=== PATIENT | female | born 1970 | race Asian ===

== ENCOUNTER 2017-02-16 06:14 | Emergency (ER) | payer BC, OTHER ==
[~2017-02-16] VITALS: Ht 160 cm; Wt 58.2 kg
[~2017-02-16 06:14] MED LIST: DEXL60CA2 PO; IBUP-1542 PO; LORA-186 PO
[2017-02-16 06:28] VITALS: Ht 160 cm; Wt 58.2 kg
[2017-02-16] MEDS ORDERED: KETOROLAC 15 MG INJ IV STA (06:41)
[2017-02-16] MEDS ORDERED: SOD CHLORIDE 0.9% 1,000 ML IV STA (06:41)
[2017-02-16 07:35] LABS: BASOPHILS % 0.6 % (0.0-2.0); EOSINOPHILS # 0.2 10^3/ul (0.0-0.5); EOSINOPHILS % 2.3 % (0.0-7.0); HEMATOCRIT 36.4 % (37.0-47.0); HEMOGLOBIN 12.1 g/dl (12.0-16.0); LYMPHOCYTES # 3.4 10^3/ul (0.8-2.9); LYMPHOCYTES % 47.7 % (15.0-51.0); MEAN CORPUSCULAR HEMOGLOBIN 29.2 pg (29.0-33.0); MEAN CORPUSCULAR HGB CONC 33.2 g/dl (32.0-37.0); MEAN CORPUSCULAR VOLUME 87.7 fl (82.0-101.0); MEAN PLATELET VOLUME 9.6 fl (7.4-10.4); MONOCYTE # 0.4 10^3/ul (0.3-0.9); MONOCYTES % 5.6 % (0.0-11.0); NEUTROPHILS % 43.5 % (39.0-77.0); PLATELET COUNT 304 10^3/UL (140-415); RED BLOOD COUNT 4.15 10^6/ul (4.20-5.40); WHITE BLOOD COUNT 7.1 10^3/ul (4.8-10.8)
--- NOTE | 2017-02-16 07:40 | RADRPT ---
PROCEDURE: CT Abdomen and pelvis without contrast. CLINICAL INDICATION: Flank pain TECHNIQUE: CT scan of the abdomen and pelvis without contrast was performed on a multidetector hig h-resolution CT scan. . Coronal and sagittal reformatted images were obtained from the axial [facility] e images. Standard CT scan of the abdomen pelvis without contrast protocols were performed. The total exam CTDI equals 7.3 mGy and the total exam DLP equals 407.62 mGy-cm. One or more of the following dose reduction techniques were used: - Automated exposure control. - Adjustment of the mA and/or kV according to patient size. Use of iterative reconstruction technique. COMPARISON: None. FINDINGS: The appendix is unremarkable. The stomach, small bowel and large bowel are unremarkable. Negative for intra-abdominal free air, free fluid, abscesses or lymphadenopathy. The kidneys are normal size without calcified renal calculi hydronephrosis or intra renal masses milvia aterally. The ureters and urinary bladder are unremarkable. The uterus is anteverted and anteflexed but otherwise unremarkable. There are no adnexal masses. T he aorta is unremarkable. The liver spleen pancreas adrenal glands and gallbladder are unremarkable. No evidence of biliary d uctal dilation. The abdominal pelvic ac are unremarkable. The lung bases are unremarkable. Minimal degenerative changes lower thoracic and lumbar spine without acute osseous findings are osteoblastic/osteolytic lesions. IMPRESSION: 1. No evidence of calcified urinary calculi or obstructive uropathy. 2. No evidence gastrointestinal disease. Negative appendix. 3. No evidence of intra-abdominal free air, free fluid, abscesses or lymphadenopathy. RPTAT:AAJJ Physician Lena Date Time Electronically viewed and signed by Physician Lena on 02/16/2017 07:39 /
[2017-02-16 07:58] LABS: ALBUMIN/GLOBULIN RATIO 1.17; CREATININE 0.67 mg/dl (0.44-1.00); POTASSIUM 3.6 mmol/L (3.5-5.1); TOTAL PROTEIN 7.4 g/dl (6.1-8.1)
[2017-02-16 08:06] LABS: ADD UMIC YES; UR ASCORBIC ACID NEGATIVE (NEGATIVE); UR BILIRUBIN (Dip) NEGATIVE (NEGATIVE); UR BLOOD (Dip) 1+ mg/dL (NEGATIVE); UR CLARITY CLEAR (CLEAR); UR COLOR YELLOW (YELLOW); UR GLUCOSE (Dip) NEGATIVE (NEGATIVE); UR KETONES (Dip) NEGATIVE (NEGATIVE); UR LEUKOCYTE ESTERASE (Dip) NEGATIVE Leu/ul (NEGATIVE); UR NITRITE (Dip) NEGATIVE (NEGATIVE); UR RBC 7 /HPF (0-5); UR SPECIFIC GRAVITY (Dip) 1.027 (1.003-1.030); UR SQUAMOUS EPITHELIAL CELL FEW /HPF (FEW); UR TOTAL PROTEIN (Dip) NEGATIVE (NEGATIVE); UR UROBILINOGEN (Dip) NEGATIVE (NEGATIVE)
[2017-02-16] MEDS ORDERED: CARI350T PO (08:11)
[2017-02-16] MEDS ORDERED: IBUP-1542 PO (08:11)
[2017-02-16 08:58] VITALS: BP 104/71; PULSE 79; RESP 17; TEMP 98.8
--- NOTE | 2017-02-16 09:18 | ERD ---
ER Documentation Chief Complaint Date/Time DATE: 02/16/17 TIME: 09:14 Chief Complaint flank pain, left side x3days HPI 46-year-old woman presents with about 1-2 weeks of left-sided parathoracic back pain. She has had no dysuria, no fevers or chills, no hematuria, no weight loss , no vomiting or diarrhea. Patient has not been using OTC NSAIDs at home with some relief. ROS All systems reviewed and are negative except as per history of present illness. Medications Home Meds Active Scripts Carisoprodol* (Soma*) 350 Mg Tablet, 350 MG PO TID Y for MUSCLE SPASMS, #12 TAB Prov:DAMIAN ANGELO MD 02/16/17 Ibuprofen* (Ibuprofen*) 600 Mg Tablet, 600 MG PO Q8 for PAIN AND/OR INFLAMMATION , #30 TAB Prov:DAMIAN ANGELO MD 02/16/17 Ibuprofen* (Motrin*) 600 Mg Tab, 600 MG PO Q6H Y for PAIN AND OR ELEVATED TEMP, #30 Prov:LANG SANCHEZ MD 05/16/15 Reported Medications Loratadine* (Claritin*) 10 Mg Tablet, 10 MG PO DAILY, TAB 05/16/15 Dexlansoprazole (Dexilant) 60 Mg Cap., 60 MG PO DAILY, CAP 05/16/15 Allergies Allergies: Coded Allergies: Sulfa (Sulfonamide Antibiotics) (Verified Allergy, Unknown, 05/16/15) PMhx/Soc History of Surgery: Yes (PARTIAL THYROIDECTOMY; LYPHOMA REMOVAL @ BACK ; ) Anesthesia Reaction: No Hx Neurological Disorder: No Hx Respiratory Disorders: No Hx Cardiac Disorders: No Hx Psychiatric Problems: No Hx Miscellaneous Medical Probl: Yes (GERD; SCIATIC NERVE PAIN, MILD SCOLIOSIS) Hx Alcohol Use: Yes (RARELY) Hx Substance Use: No Hx Tobacco Use: No Smoking Status: Former smoker FmHx Family History: No diabetes Physical Exam Vitals Vital Signs Date Time Temp Pulse Resp B/P Pulse Ox O2 Delivery O2 Flow Rate FiO2 02/16/17 08:58 98.8 79 17 104/71 100 Room Air 02/16/17 06:28 98.7 85 14 135/72 100 Physical Exam GENERAL: Well-developed, well-nourished, well-hydrated, in no apparent distress , looks nontoxic in appearance HEENT: Moist mucous membranes, pink conjunctiva, no cervical spine tenderness or step-off deformities, no goiter, no jaundice or icterus, extraocular movements intact without pain. No submandibular induration, and no pharyngeal erythema NEURO: Alert and oriented 3, cranial nerves II through XII intact bilaterally, pupils equal round reactive to light, no focal deficits or facial asymmetry, sensation intact distally Strength 5/5 in upper and lower extremities bilaterally CARDIAC: Regular rate and rhythm, no murmurs rubs or gallops LUNGS: Clear bilaterally no wheezing crackles or stridor ABDOMEN: Soft nontender, no guarding, no rigidity, no rebound, no psoas sign no obturator sign. Normoactive bowel sounds SKIN: Warm and dry to touch, no abrasions, contusions, or hematomas, no lacerations, no ecchymosis, no target lesions, and without ulcers EXTREMITIES: No clubbing cyanosis or edema, calves are bilaterally symmetrical, no Homans sign, no popliteal cord sign. Distal pulses equal and bilateral PSYCH: Normal affect without agitation or irritability Result Diagram: 02/16/17 0650 02/16/17 0650 Results 24 hrs Laboratory Tests Test 02/16/17 06:48 02/16/17 06:50 Urine Color YELLOW Urine Clarity CLEAR Urine pH 5.0 Urine Specific [place] 1.027 Urine Ketones NEGATIVEmg/dL Urine Nitrite NEGATIVEmg/dL Urine Bilirubin NEGATIVEmg/dL Urine Urobilinogen NEGATIVEmg/dL Urine Leukocyte Esterase NEGATIVELeu/ul Urine Microscopic RBC 7/HPF Urine Microscopic WBC 1/HPF Urine Squamous Epithelial Cells FEW/HPF Urine Hemoglobin 1+mg/dL Urine Glucose NEGATIVEmg/dL Urine Total Protein NEGATIVEmg/dl White Blood Count 7.110^3/ul Red Blood Count 4.1510^6/ul Hemoglobin 12.1g/dl Hematocrit 36.4% Mean Corpuscular Volume 87.7fl Mean Corpuscular Hemoglobin 29.2pg Mean Corpuscular Hemoglobin Concent 33.2g/dl Red Cell Distribution Width 13.0% Platelet Count 89284^3/UL Mean Platelet Volume 9.6fl Neutrophils % 43.5% Lymphocytes % 47.7% Monocytes % 5.6% Eosinophils % 2.3% Basophils % 0.6% Nucleated Red Blood Cells % 0.0/100WBC Neutrophils # (Manual) 3.110^3/ul Lymphocytes # 3.410^3/ul Monocytes # 0.410^3/ul Eosinophils # 0.210^3/ul Basophils # 0.010^3/ul Nucleated Red Blood Cells # 0.010^3/ul Sodium Level 142mmol/L Potassium Level 3.6mmol/L Chloride Level 104mmol/L Carbon Dioxide Level 26mmol/L Anion Gap 16 Blood Urea Nitrogen 19mg/dl Creatinine 0.67mg/dl Glucose Level 91mg/dl Calcium Level 9.0mg/dl Total Bilirubin 0.0mg/dl Direct Bilirubin 0.00mg/dl Indirect Bilirubin 0.0mg/dl Aspartate Amino Transf (AST/SGOT) 27IU/L Alanine Aminotransferase (ALT/SGPT) 27IU/L Alkaline Phosphatase 72IU/L Total Protein 7.4g/dl Albumin 4.0g/dl Globulin 3.40g/dl Albumin/Globulin Ratio 1.17 Lipase 338U/L Current Medications Medications (Trade) Dose Ordered Sig/[place] Route PRN Reason Start Time Stop Time Status Last Admin Dose Admin Sodium Chloride (NS) 1,000 ml @ 1,000 mls/hr Q1H STAT IV 02/16/17 06:41 02/16/17 07:40 DC 02/16/17 07:03 Ketorolac Tromethamine (Toradol) 15 mg ONCE STAT IV 02/16/17 06:41 02/16/17 06:44 DC 02/16/17 07:08 Procedures/MDM IV line was established patient was placed on supply chain analyst rhythm strip revealed a sinus rhythm at about 80 bpm with upright P and T waves. Patient was afebrile. test was negative, urinalysis revealed microscopic blood no signs of infection. CBC and electrolytes are normal, liver function tests normal. I administered 1 L normal saline intravenously and Toradol 15 mg IV with good pain control. CT scan of the abdomen and pelvis was performed no acute infectious or inflammatory pathology was noted, no urinary calculi noted. Please refer to radiologist dictation for full report. Differential diagnoses considered, included but not limited to acute coronary syndrome, pulmonary embolism, aortic dissection, abdominal aortic aneurysm, sepsis, stroke, meningitis, encephalitis, pneumonia, appendicitis, cholecystitis , bowel obstruction, pyelonephritis, nephrolithiasis, cystitis, as well as metabolic, hematologic, and electrolyte abnormalities. As well as abscess, cellulitis, fractures, and dislocations. Patient feels much better at this time, and vital signs are normal, symptoms have improved. I did give strict instructions to return to the ED if symptoms continue or worsen, patient will otherwise follow-up with primary care physician. Patient understood instructions and agreed to plan. Disclaimer: Inadvertent spelling and grammatical errors are likely due to EHR/ dictation software use and do not reflect on the overall quality of patient care. Also, please note that the electronic time recorded on this note does not necessarily reflect the actual time of the patient encounter. Departure Diagnosis: Primary Impression: Back muscle spasm Condition: Good Patient Instructions: Thoracic Strain DAMIAN ANGELO MD Feb 16, 2017 09:17
== END 2017-02-16 08:58 | disposition home or self-care (01) ==
LOC: E/R 06:14
DX: M62.830 Muscle spasm of back (principal); Z87.891 Personal history of nicotine dependence
CPT/HCPCS: 36415; 74176; 80053; 81001; 83690; 85025; 96361; 96374; 99285; J1885; J7030

== ENCOUNTER 2017-06-19 15:49 | Emergency (ER) | END 2017-06-19 18:12 | disposition home or self-care (01) ==

== ENCOUNTER 2018-12-04 04:32 | Emergency (ER) | payer BC ==
[~2018-12-04] VITALS: Ht 160 cm; Wt 58.0 kg
[~2018-12-04 04:32] MED LIST changes: +ALBU2.5V3 NEB; +BENZ-6 PO; +CARI350T PO; +FLUT9.9S NASAL
[2018-12-04 04:37] VITALS: BP 126/65; PULSE 82; RESP 19; Ht 160 cm; Wt 58.0 kg
--- NOTE | 2018-12-04 04:39 | ERD ---
ER Documentation Chief Complaint Chief Complaint bib self, cc: back pain HPI The patient is a 48 yo female, presenting with mild thoracic pain, denies trauma/numbness in upper extremities/chest pain/dyspnea. She does not smoke PMH/PSH: Unremarkable ROS All systems reviewed and are negative except as per history of present illness. Medications Home Meds Active Scripts Benzonatate* (Tessalon Perle*) 100 Mg Capsule, 100 MG PO Q8H PRN for COUGH, #30 CAP Prov:LANG SANCHEZ MD 06/19/17 Fluticasone Propionate (Flonase Allergy Relief) 9.9 Ml [place].susp, 1 SPRAY NASAL DAILY, #1 BOTTLE TO EACH NOSTRIL Prov:LANG SANCHEZ MD 06/19/17 Albuterol Sulfate* (Albuterol Sulfate* Neb) 0.083%-3 Ml Neb, 2.5 MG NEB Q4 PRN for SHORTNESS OF BREATH, #30 EA Prov:LANG SANCHEZ MD 06/19/17 Carisoprodol* (Soma*) 350 Mg Tablet, 350 MG PO TID PRN for MUSCLE SPASMS, #12 TAB Prov:DAMIAN ANGELO MD 02/16/17 Ibuprofen* (Ibuprofen*) 600 Mg Tablet, 600 MG PO Q8 for PAIN AND/OR INFLAMMATION, #30 TAB Prov:DAMIAN ANGELO MD 02/16/17 Ibuprofen* (Motrin*) 600 Mg Tab, 600 MG PO Q6H PRN for PAIN AND OR ELEVATED TEMP, #30 Prov:LANG SANCHEZ MD 05/16/15 Reported Medications Loratadine* (Claritin*) 10 Mg Tablet, 10 MG PO DAILY, TAB 05/16/15 Dexlansoprazole (Dexilant) 60 Mg Vicente., 60 MG PO DAILY, CAP 05/16/15 Allergies Allergies: Coded Allergies: Sulfa (Sulfonamide Antibiotics) (Verified Allergy, Unknown, 05/16/15) PMhx/Soc History of Surgery: Yes (PARTIAL THYROIDECTOMY; LYPHOMA REMOVAL @ BACK ; ) Anesthesia Reaction: No Hx Neurological Disorder: No Hx Respiratory Disorders: No Hx Cardiac Disorders: No Hx Psychiatric Problems: No Hx Miscellaneous Medical Probl: Yes (GERD; SCIATIC NERVE PAIN, MILD SCOLIOSIS) Hx Alcohol Use: Yes (RARELY) Hx Substance Use: No Hx Tobacco Use: No Physical Exam Vitals Vital Signs Date Temp Pulse Resp B/P (MAP) Pulse Ox O2 O2 Flow FiO2 Time Delivery Rate 12/04/18 98.2 82 19 126/65 100 04:37 (85) Physical Exam Const: No acute distress. Head: Atraumatic. Eyes: Normal Conjunctiva. ENT: Normal External Ears, Nose and Mouth. Neck: Full range of motion. No meningismus. Resp: Clear to auscultation bilaterally. Cardio: Regular rate and rhythm. Abd: Soft, non distended, normal bowel sounds, non tender. Skin: No petechiae or rashes. Back: minimal thoracic tenderness. Ext: No cyanosis, or edema. Neur: Awake and alert. No focal deficit Psych: Normal Mood and Affect. Procedures/[place] [id number] Radiology Main Line: [phone] DIAGNOSTIC IMAGING REPORT Patient: DOUGIEALICE DERRICK : 1970 Age: 48 Sex: F MR #: [id number] DOS: 12/04/18 0449 Ordering MD: HANK SPARKS MD Location: E/R Room/Bed: PROCEDURE: Thoracic spine series CLINICAL INDICATION: Pain TECHNIQUE: AP, lateral and swimmers views were obtained of the thoracic spine COMPARISON: None FINDINGS: No evidence of acute fractures or subluxations. The bony mineralization is normal. No focal bony blastic or lytic lesions. Minimal levorotatory scoliosis of the thoracic spine. Posterior elements are intact. No paraspinous masses. IMPRESSION: No evidence acute fractures or subluxations. RPTAT:AAJJ Physician Lena Date Time Electronically viewed and signed by Physician Lena on 12/04/2018 05:15 BM/ CC: HANK SPARKS MD [phone] MEDICAL MAKING DECISION: The patient is a 48-year-old female, presenting with acute back pain, is stable for outpatient follow-up The differential diagnoses considered include but are not limited to caudal equina syndrome, spinal abscess, DJD, diskitis, lumbar radiculopathy. Departure Diagnosis: Primary Impression: Back pain Condition: Good Comments I discussed the findings with the patient. I advised the patient to follow-up with the primary physician in about 2-3 days, sooner if needed and return if any concern. Disclaimer: Inadvertent spelling and grammatical errors are likely due to EHR/dictation software use and do not reflect on the overall quality of patient care. Also, please note that the electronic time recorded on this note does not necessarily reflect the actual time of the patient encounter. HANK SPARKS MD Dec 04, 2018 04:39
== END 2018-12-04 05:44 | disposition home or self-care (01) ==
LOC: E/R 04:32 → EEVIPCON 04:32 → E/R 05:44
DX: M54.6 Pain in thoracic spine (principal)
CPT/HCPCS: 72072

== ENCOUNTER 2018-12-10 23:55 | Emergency (ER) | payer BC ==
[~2018-12-10] VITALS: Ht 160 cm; Wt 59.6 kg
[2018-12-10 23:57] VITALS: Ht 160 cm; Wt 59.6 kg
--- NOTE | 2018-12-11 00:18 | ERD ---
ER Documentation Chief Complaint Chief Complaint upper back pain x1 month HPI This is a 48-year-old female who presents here in the emergency department with complaints of generalized back pain for about a month. Stated that this is painful even at rest. Was here about a week ago with plain imagings, with negative results. Stated that pain has gotten worse. Pain was described as sharp that radiates to bilateral upper and lower extremities. Patient also complains of numbness and tingling sensation to bilateral upper extremities that is on and off but got worse in the last few days. Patient also complains of difficulty walking due to pain. Also complains of difficulty sleeping due to pain and discomfort. Complains of dizziness, discomfort, and pain to her back even at rest. She also complains of palpitations in the last few weeks and got worse in the last few days. Patient also stated that her noticed that sometimes she perspires even if she does not feel hot. Also added that she has loss of appetite. LMP: Unknown. Denies headache, head injury, loss of consciousness, neck stiffness, throat pain, difficulty swallowing, difficulty breathing lying flat, shoulder pain, chest pain, abdominal pain, nausea, vomiting, constipation, diarrhea, urinary symptoms, or possibility being , loss of bowel and bladder control, calf pain, recent travel, recent major surgery in the last 3 weeks, calf pain, recent long travel, recent exposure to any illness, recent antibiotic use in the last 3 months, fever, chills, seizures. Past medical history: Scoliosis. Surgical history: Thyroid. Social: Denies smoking, use of alcoholic beverages, use of illegal drugs. ROS All systems reviewed and are negative except as per history of present illness. Medications Home Meds Active Scripts Metaxalone* (Skelaxin*) 800 Mg Tablet, 800 MG PO TID PRN for MUSCLE SPASMS, #20 TAB Prov:PASILABAN,KLAR F 12/11/18 Omeprazole* (Omeprazole*) 40 Mg Capsule.dr, 40 MG PO DAILY, #30 CAP Prov:PASILABAN,KLAR F 12/11/18 Ibuprofen* (Motrin*) 600 Mg Tab, 600 MG PO Q8 PRN for PAIN AND OR ELEVATED TEMP, #30 TAB Prov:PASILABAN,KLAR F 12/11/18 Cephalexin* (Keflex*) 500 Mg Capsule, 500 MG PO TID for 7 Days, CAP Prov:PASILABAN,KLAR F 12/11/18 Benzonatate* (Tessalon Perle*) 100 Mg Capsule, 100 MG PO Q8H PRN for COUGH, #30 CAP Prov:LANG SANCHEZ MD 06/19/17 Fluticasone Propionate (Flonase Allergy Relief) 9.9 Ml [place].susp, 1 SPRAY NASAL DAILY, #1 BOTTLE TO EACH NOSTRIL Prov:LANG SANCHEZ MD 06/19/17 Albuterol Sulfate* (Albuterol Sulfate* Neb) 0.083%-3 Ml Neb, 2.5 MG NEB Q4 PRN for SHORTNESS OF BREATH, #30 EA Prov:LANG SANCHEZ MD 06/19/17 Carisoprodol* (Soma*) 350 Mg Tablet, 350 MG PO TID PRN for MUSCLE SPASMS, #12 TAB Prov:DAMIAN ANGELO MD 02/16/17 Ibuprofen* (Ibuprofen*) 600 Mg Tablet, 600 MG PO Q8 for PAIN AND/OR INFLAMMATION, #30 TAB Prov:DAMIAN ANGELO MD 02/16/17 Ibuprofen* (Motrin*) 600 Mg Tab, 600 MG PO Q6H PRN for PAIN AND OR ELEVATED TEMP, #30 Prov:LANG SANCHEZ MD 05/16/15 Reported Medications Loratadine* (Claritin*) 10 Mg Tablet, 10 MG PO DAILY, TAB 05/16/15 Dexlansoprazole (Dexilant) 60 Mg Cap., 60 MG PO DAILY, CAP 05/16/15 Allergies Allergies: Coded Allergies: Sulfa (Sulfonamide Antibiotics) (Verified Allergy, Unknown, 05/16/15) PMhx/Soc History of Surgery: Yes (PARTIAL THYROIDECTOMY; LIPOMA REMOVAL @ BACK ; ) Anesthesia Reaction: No Hx Neurological Disorder: No Hx Respiratory Disorders: No Hx Cardiac Disorders: No Hx Psychiatric Problems: No Hx Miscellaneous Medical Probl: Yes (GERD; SCIATIC NERVE PAIN, MILD SCOLIOSIS) Hx Alcohol Use: Yes (RARELY) Hx Substance Use: No Hx Tobacco Use: No Physical Exam Vitals Physical Exam Const: No acute distress Head: Atraumatic. Normocephalic. Eyes: Normal Conjunctiva. There is no total visual field loss. Extraocular movement of her eyes are within normal limits. ENT: Normal External Ears, Nose and Mouth. Neck: Full range of motion. No meningismus. C-spine is in midline and has no swelling/bulging/discoloration but has tenderness to palpation and has pain to range of motion. Resp: Clear to auscultation bilaterally. Chest area: Examined with female building maintenance repairer. No vesicular lesions. Cardio: Regular rate and rhythm, no murmurs Abd: Soft, non tender, non distended. Normal bowel sounds. Negative Paredes sign. Negative Isis sign (heel jar test). No CVA tenderness. There is no pulsating abdominal mass. There is no palpable mass. Skin: No petechiae or rashes. Examined with female building maintenance repairer. No vesicular lesions. Back: No midline or flank tenderness. T-spine/L-spine are midline and has no swelling/bulging/discoloration but has tenderness to palpation and pain to range of motion. Developed severe mid back pain when bending and touching her toes. Developed severe lower back pain when performing a squat. Negative straight leg test bilaterally. Negative cross straight leg test bilaterally. Bilateral hips are stable and unremarkable. No saddle anesthesia. Ext: No cyanosis, or edema. Bilateral knees are symmetrical. Bilateral knees: No deformities. No swelling. Good and full range of motion. No calf tenderness bilaterally. Bilateral pedal pulses are within normal limits. Capillary refill is 2 lower extremities are less than 2 seconds. No neurovascu lar deficits. Neur: Awake and alert. Follows commands. Sensation is intact. Equal inside horticultural specialty grower but 4/5 in strength. Negative Phalen's test. Equal strength in lower extremity but 4/5 in score. Romberg test is negative. No neurological deficits. Psych: Normal Mood and Affect Results 24 hrs Laboratory Tests Test 12/11/18 00:28 12/11/18 00:29 12/11/18 02:48 12/17/18 12:50 White Blood 6.1 10^3/ul Count Red Blood Count 4.34 10^6/ul Hemoglobin 13.0 g/dl Hematocrit 40.1 % Mean Corpuscular 92.4 fl Volume Mean Corpuscular 30.0 pg Hemoglobin Mean Corpuscular 32.4 g/dl Hemoglobin Erin nt Red Cell 12.5 % Distribution Width Platelet Count 293 10^3/UL Mean Platelet 9.3 fl Volume Immature 0.200 % Granulocytes % Neutrophils % 62.5 % Lymphocytes % 29.6 % Monocytes % 4.9 % Eosinophils % 2.3 % Basophils % 0.5 % Nucleated Red 0.0 /100WBC Blood Cells % Immature 0.010 10^3/ul Granulocytes # Neutrophils # 3.8 10^3/ul Lymphocytes # 1.8 10^3/ul Monocytes # 0.3 10^3/ul Eosinophils # 0.1 10^3/ul Basophils # 0.0 10^3/ul Nucleated Red 0.0 10^3/ul Blood Cells # Prothrombin Time 12.0 Sec Prothrombin Time 0.9 Ratio INR 0.88 International Normalized Ratio Activated 32.0 Sec Partial Thrombop last Time Urine Color YELLOW Urine Clarity SLIGHTLY CLOUDY Urine pH 6.0 Urine Specific 1.020 [place] Urine Ketones NEGATIVE mg/dL Urine Nitrite NEGATIVE mg/dL Urine Bilirubin NEGATIVE mg/dL Urine 1+ mg/dL Urobilinogen Urine Leukocyte 2+ Ramin/ul Esterase Urine 5 /HPF Microscopic RBC Urine 9 /HPF Microscopic WBC Urine Squamous FEW /HPF Epithelial Cells Urine Bacteria FEW /HPF Urine Mucus FEW /HPF Urine Hemoglobin NEGATIVE mg/dL Urine Random Uric Acid Urine Glucose NEGATIVE mg/dL Urine Total NEGATIVE mg/dl Protein Sodium Level 143 mmol/L Potassium Level 3.7 mmol/L Chloride Level 106 mmol/L Carbon Dioxide 28 mmol/L Level Anion Gap 9 Blood Urea 14 mg/dl Nitrogen Creatinine 0.51 mg/dl Est Glomerular > 60 mL/min Filtrat Rate mL/min Glucose Level 103 mg/dl Uric Acid 4.0 mg/dl Calcium Level 8.9 mg/dl Total Bilirubin 0.3 mg/dl Direct Bilirubin 0.00 mg/dl Indirect 0.3 mg/dl Bilirubin Aspartate Amino 21 IU/L Transf (AST/SGOT ) Alanine 14 IU/L Aminotransferase (ALT/SGPT) Alkaline 56 IU/L Phosphatase Troponin I < 0.012 ng/ml Total Protein 7.1 g/dl Albumin 4.0 g/dl Globulin 3.10 g/dl Albumin/Globulin 1.29 Ratio Thyroid 1.820 MIU/L Stimulating Hormone (TSH) Free Thyroxine 1.02 ng/dl Free 3.83 pg/ml Triiodothyronine (T3) pg/mL Anti-Nuclear NEGATIVE Antibody Screen Erythrocyte 8 mm/Hr Sedimentation Rate C-Reactive < 0.5 mg/dl Protein Complement C3 105 mg/dl Complement C4 25 mg/dl POC Beta HCG, NEGATIVE Qualitative Lab Scanned REFERENCE Report LAB [id number] Procedures/MDM Diagnostic tests: POC urine : Negative. Urinalysis: UTI Culture urine: Sent Blood works: Reviewed CT of the C-spine: No acute bony abnormality identified in the cervical spine. Mild C5-C6 degenerative changes. Mild reversal of the normal lordotic curvature, which may be positional or secondary to muscle spasm. CT of the T-spine: No acute bony abnormality identified in the thoracic spine. Mild T4-T5 degenerative changes. 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 CT of the L-spine: No acute bony abnormality identified in the lumbar spine. Mild multilevel lumbar degenerative changes, with mild left foraminal narrowing at the L4-S1 levels. Treatment: Offered pain medication. Patient stated that at this time she could still control and tolerate the discomfort and pain and that she will let me know if she needs it. Re-evaluation: Minimal pain. Sensation is intact. No neurovascular deficits. No saddle anesthesia. Romberg test negative. No neurological deficits. Ambula tory with steady gait. Stated that she is comfortable to go home. Patient and family member stated that they are comfortable going home. Differential diagnosis I have low suspicion for stroke, carotid stenosis, carotid aneurysm, hyperthyroidism, hypothyroidism, thyroid storm, thyroid toxicosis, hyperparathyroidism, C-spine fracture, C-spine subluxation, T-spine fracture, T-spine subluxation, L-spine fracture, L-spine subluxation, cauda equina syndrome, aortic dissection, abdominal aortic aneurysm, non-STEMI, pneumonia, nephrolithiasis, pyelonephritis, obstructing kidney stones, septic stone, epidural abscess, carpal tunnel syndrome. Final diagnosis: Pinched nerve. UTI. Prescription: Keflex. Omeprazole. Motrin. Skelaxin. Follow-up with PCP in the next 24-48 hours. Follow-up with customer success specialist in the next 24 to 48 hours. Come back here in the emergency department for any new symptoms or any worsening symptoms. All questions and concerns were answered. Patient and family members verbalized understanding and agreed with plan of care. Hemodynamically stable on discharge. Departure Diagnosis: Primary Impression: Pinched nerve Additional Impressions: UTI (urinary tract infection) Back pain Condition: Stable Additional Instructions: Follow-up with PCP in the next 24-48 hours. Follow-up with customer success specialist in the next 24 to 48 hours. Come back here in the emergency department for any new symptoms or any worsening symptoms. VIKA AWAN Dec 11, 2018 00:18
[2018-12-11] MEDS ORDERED: IBUP-1542 PO (02:55)
[2018-12-11] MEDS ORDERED: CEPH-443 PO (02:55)
[2018-12-11] MEDS ORDERED: META-121 PO (02:56)
[2018-12-11] MEDS ORDERED: OMEP40CA6 PO (02:56)
[2018-12-11 03:56] VITALS: BP 132/62; PULSE 84; RESP 16
== END 2018-12-11 03:56 | disposition home or self-care (01) ==
LOC: FTE 23:55 → EEVIPCON 23:55 → FTE 12-11 03:56
DX: M54.6 Pain in thoracic spine (principal); N39.0 Urinary tract infection, site not specified; M54.16 Radiculopathy, lumbar region
CPT/HCPCS: 72125; 72128; 72131; 80053; 81001; 81025; 84439; 84443; 84481; 84484; 84560; 85025; 85610; 85651; 85730; 86038; 86140; 86160; 87086

== ENCOUNTER 2019-01-24 06:43 | Emergency (ER) | payer BC ==
[~2019-01-24] VITALS: Ht 160 cm; Wt 57.0 kg
[~2019-01-24 06:43] MED LIST changes: +BACL10TA PO; +CEPH-443 PO; +HYDR-4011 PO; +MED4DP PO; +META-121 PO; +NAPR-985 PO; +OMEP40CA6 PO
[2019-01-24 06:47] VITALS: BP 121/58; PULSE 68; RESP 20; Ht 160 cm; Wt 57.0 kg
[2019-01-24] MEDS ORDERED: KETOROLAC 30 MG INJ IM STA (07:09)
[2019-01-24] MEDS ORDERED: DEXAMETHASONE 10 MG/ML 1 ML INJ IM ONE (07:30)
--- NOTE | 2019-01-24 08:23 | ERD ---
ER Documentation Chief Complaint Chief Complaint lower back pain started yesterday HPI 48-year-old female presenting with lower back pain that started yesterday. She states she has a history of chronic back pain however it has exacerbated and become much worse today. It hurts when she moves and gets up and down. She is taken [place] and Flexeril in the past with alleviation of symptoms. Denies any falls. Has not taken medications for symptoms. Medical history is partial thyroidectomy and GERD. Allergy to sulfa. Surgical history lipoma removal and partial thyroidectomy. Social history quit smoking 20 years ago ROS All systems reviewed and are negative except as per history of present illness. Medications Home Meds Active Scripts Naproxen* (Naprosyn*) 500 Mg Tablet, 500 MG PO BID PRN for PAIN AND/OR INFLAMMATION, #30 TAB Prov:ROGER LAST PA-C 01/24/19 Hydrocodone/Acetaminophen ([place] 5-325 Tablet) 1 Each Tablet, 1 TAB PO Q6H PRN for PAIN, #7 TAB Prov:ROGER LAST PA-C 01/24/19 Baclofen* (Baclofen*) 10 Mg Tablet, 10 MG PO TID, #20 TAB Prov:ROGER LAST PA-C 01/24/19 Methylprednisolone* (Medrol* DOSE PACK) 4 Mg/Dose-Pack Tab.ds.pk, 4 MG PO . DIRECTED, #1 PACKET Prov:ROGER LAST PA-C 01/24/19 Metaxalone* (Skelaxin*) 800 Mg Tablet, 800 MG PO TID PRN for MUSCLE SPASMS, #20 TAB Prov:PASILAVIKA MENDOZA 12/11/18 Omeprazole* (Omeprazole*) 40 Mg Capsule.dr, 40 MG PO DAILY, #30 CAP Prov:PASILABANVIKA F 12/11/18 Ibuprofen* (Motrin*) 600 Mg Tab, 600 MG PO Q8 PRN for PAIN AND OR ELEVATED TEMP, #30 TAB Prov:PASILABANCAITLINAR F 12/11/18 Cephalexin* (Keflex*) 500 Mg Capsule, 500 MG PO TID for 7 Days, CAP Prov:PASILAVIKA MENDOZA F 12/11/18 Benzonatate* (Tessalon Perle*) 100 Mg Capsule, 100 MG PO Q8H PRN for COUGH, #30 CAP Prov:LANG SANCHEZ MD 06/19/17 Fluticasone Propionate (Flonase Allergy Relief) 9.9 Ml [place].susp, 1 SPRAY NASAL DAILY, #1 BOTTLE TO EACH NOSTRIL Prov:LANG SANCHEZ MD 06/19/17 Albuterol Sulfate* (Albuterol Sulfate* Neb) 0.083%-3 Ml Neb, 2.5 MG NEB Q4 PRN for SHORTNESS OF BREATH, #30 EA Prov:LANG SANCHEZ MD 06/19/17 Carisoprodol* (Soma*) 350 Mg Tablet, 350 MG PO TID PRN for MUSCLE SPASMS, #12 TAB Prov:DAMIAN ANGELO MD 02/16/17 Ibuprofen* (Ibuprofen*) 600 Mg Tablet, 600 MG PO Q8 for PAIN AND/OR INFLAMMATION, #30 TAB Prov:DAMIAN ANGELO MD 02/16/17 Ibuprofen* (Motrin*) 600 Mg Tab, 600 MG PO Q6H PRN for PAIN AND OR ELEVATED TEM P, #30 Prov:LANG SANCHEZ MD 05/16/15 Reported Medications Loratadine* (Claritin*) 10 Mg Tablet, 10 MG PO DAILY, TAB 05/16/15 Dexlansoprazole (Dexilant) 60 Mg Cap., 60 MG PO DAILY, CAP 05/16/15 Allergies Allergies: Coded Allergies: Sulfa (Sulfonamide Antibiotics) (Verified Allergy, Unknown, 05/16/15) PMhx/Soc History of Surgery: Yes (lipoma removal, partial thyroidectomy) Anesthesia Reaction: No Hx Neurological Disorder: No Hx Respiratory Disorders: No Hx Cardiac Disorders: No Hx Psychiatric Problems: No Hx Miscellaneous Medical Probl: Yes (GERD, mild scoliosis.) Hx Alcohol Use: Yes (rarely) Hx Substance Use: No Hx Tobacco Use: Yes (20 years ago) Smoking Status: Former smoker FmHx Family History: No diabetes, No coronary disease, No other Physical Exam Vitals Vital Signs Date Temp Pulse Resp B/P (MAP) Pulse Ox O2 O2 Flow FiO2 Time Delivery Rate 01/24/19 97.8 68 20 121/58 100 06:47 (79) Physical Exam GENERAL: The patient is well-appearing, well-nourished, in no acute distress HEENT: Atraumatic. Conjunctivae are pink. Pupils equal, round, and reactive to light. There is no scleral icterus. Tympanic membranes clear bilaterally. Oropharynx clear. CHEST: Clear to auscultation bilaterally. There are no rales, wheezes or rhonchi. HEART: Regular rate and rhythm. No murmurs, clicks, rubs or gallops. ABDOMEN:Soft, nontender and nondistended. Good bowel sounds. No rebound or guarding. No gross peritonitis. No gross organomegaly or masses. BACK: Palpation over the lumbar spine with mild bilateral paraspinous muscles lumbar spine. EXTREMITIES: Equal pulses bilaterally. There is no peripheral clubbing, cyanosis or edema. No focal swelling or erythema. Full range of motion. Grossly neurovascularly intact. NEUROLOGIC: Alert and oriented. Cranial nerves II through XII intact. Motor strength in all 4 extremities with 5 out of 5 strength. Sensation grossly intact. Normal speech and gait. Results 24 hrs Current Medications Medications Dose Sig/[place] Start Time Status Last (Trade) Ordered Route PRN Stop Time Admin Dose Reason Admin 10 mg ONCE ONCE 01/24/19 DC 01/24/19 Dexamethasone IM 07:30 01/24/19 07:26 (Decadron) 07:31 Ketorolac 30 mg ONCE STAT 01/24/19 DC 01/24/19 Tromethamine IM 07:09 01/24/19 07:26 (Toradol) 07:10 Procedures/MDM ER course: Toradol and Decadron given in the ED. MDM: 48-year-old female presents with back pain. Patient has findings consi stent with lumbar ago but I have low suspicion for discitis, epidural abscess or cauda equina. Patient will be discharged with supportive medications and recommended to avoid from heavy lifting or excessive exercise. Patient is told if symptoms change or worsen to return immediately to the ER. All questions answered at discharge Departure Diagnosis: Primary Impression: Back pain Condition: Stable Patient Instructions: Back Pain (Acute Or Chronic) Referrals: COMMUNITY CLINICS YOU HAVE RECEIVED A MEDICAL SCREENING EXAM AND THE RESULTS INDICATE THAT YOU DO NOT HAVE A CONDITION THAT REQUIRES URGENT TREATMENT IN THE EMERGENCY DEPARTMENT. FURTHER EVALUATION AND TREATMENT OF YOUR CONDITION CAN WAIT UNTIL YOU ARE SEEN IN YOUR DOCTORS OFFICE WITHIN THE NEXT 1-2 DAYS. IT IS YOUR RESPONSIBILITY TO MAKE AN APPOINTMENT FOR FOLOW-UP CARE. IF YOU HAVE A PRIMARY DOCTOR --you should call your primary doctor and schedule an appointment IF YOU DO NOT HAVE A PRIMARY DOCTOR YOU CAN CALL OUR PHYSICIAN REFERRAL HOTLINE AT IF YOU CAN NOT AFFORD TO SEE A PHYSICIAN YOU CAN CHOSE FROM THE FOLLOWING [facility] CLINICS [facility] [address] [facility] [address] [facility] [address] [facility] [address] [facility] [address] [facility]. [facility]. [address] Additional Instructions: FOLLOW UP WITH YOUR PRIMARY CARE PHYSICIAN TOMORROW.Return to this facility if you are not improving as expected. ROGER LAST PA-C Jan 24, 2019 08:23
== END 2019-01-24 08:35 | disposition home or self-care (01) ==
LOC: FTE 06:43
DX: M54.5 Low back pain (principal); Z87.891 Personal history of nicotine dependence
CPT/HCPCS: 96372; 99284; J1100; J1885